=== PATIENT | female | born 1975 | race Native Hawaiian/Other Pacific Islander ===

== ENCOUNTER 2021-07-31 15:23 | Outpatient (CLI) | payer OTHER | END 2021-07-31 19:15 | disposition home or self-care (01) | LOC: US 15:23 | PROVIDERS: ATTEND Nurse Practitioner | DX: R22.42 Localized swelling, mass and lump, left lower limb (principal); M79.662 Pain in left lower leg ==

== ENCOUNTER 2022-02-08 14:59 | Outpatient (CLI) | payer OTHER | END 2022-02-08 19:27 | disposition home or self-care (01) | LOC: RAD 14:59 | PROVIDERS: ATTEND Nurse Practitioner | DX: M79.642 Pain in left hand (principal); M25.532 Pain in left wrist ==

== ENCOUNTER 2022-04-25 11:32 | Day surgery (SDC) | payer OTHER | END 2022-04-25 16:05 | disposition home or self-care (01) | LOC: OR 11:32 | PROVIDERS: ATTEND Internal Medicine Gastroenterology | PROC: 0DB68ZX Excision of Stomach, Via Natural or Artificial Opening Endoscopic, Diagnostic (ICD-10-PCS; principal; 2022-04-25) | PROC: 0DB88ZX Excision of Small Intestine, Via Natural or Artificial Opening Endoscopic, Diagnostic (ICD-10-PCS; 2022-04-25) | DX: K25.9 Gastric ulcer, unspecified as acute or chronic, without hemorrhage or perforation (principal); K29.00 Acute gastritis without bleeding; K21.00 Gastro-esophageal reflux disease with esophagitis, without bleeding; R10.12 Left upper quadrant pain; R10.13 Epigastric pain | CPT/HCPCS: J2001 ==